=== PATIENT | female | born 1985 | race Caucasian/White ===

== ENCOUNTER → 2016-07-01 | Outpatient (REF) ==
--- NOTE | 2016-07-01 18:55 | REP ---
THREE-VIEW LUMBAR SPINE: 07/01/2016. Comparison: 06/03/2010 at [facility]. Clinical history: Back pain, disability determination. Findings. The lateral view shows slight loss of lordosis. This may reflect some mild spasm. There is minimal degenerative disc change at L5-S1 with small anterior spur from the superior endplate of L5. There is no spondylolysis, spondylolisthesis, compression deformity or focal lesion. The pedicles, spinous and transverse processes are intact. SI joints, sacral ala, foramina and the visualized thoracic levels and visualized ribs are intact. IMPRESSION: 1. Slight loss of lordosis may reflect some spasm with minimal degenerative change. No spondylolysis, compression deformity or other acute finding. Signed by Jalen Sheridan MD 07/01/2016 08:29 P
== END ==
LOC: M SMT 13:59
PROVIDERS: ATTEND Internal Medicine
DX: Z00.00 Encounter for general adult medical examination without abnormal findings (principal)

== ENCOUNTER → 2022-12-30 | Outpatient (REF) | LOC: M PLAIMG 13:21 | PROVIDERS: ATTEND Internal Medicine | DX: R52 Pain, unspecified (principal) ==